=== PATIENT | male | born 1950 | race Caucasian/White ===

== ENCOUNTER → 2016-05-23 | Outpatient (CLI) | payer OTHER ==
[~2016-05-23] MED LIST: GADOBUTROL 10 ML VIAL IVP ONE
[2016-05-23 13:06] LABS: CREATININE 0.9 mg/dL (0.7-1.3); GLOMERULAR FILTRATION RATE > 60
--- NOTE | 2016-05-23 16:42 | MR ---
MRI of the Brain (Without and With Contrast) May 23, 2016 at 1322 Hours Clinical Indications: Left caudate nucleus enhancing lesion. Right frontal lobe meningioma enhancing lesion. Follow-up. Comparison: MRI brain from September 2015. Technique: T1-weighted images were acquired axially and sagittally from the foramen magnum to the ve rtex. Axial fast inversion-recovery, fast T2-weighted, and diffusion-weighted axial images were obta ined without contrast. Postcontrast axial and coronal images with the uneventful intravenous administ ration of 7.5 mL Gadavist contrast utilized for the MRI of the brain, lumbar spine, and cervical spin e. Findings: In the anterior aspect of the right frontal lobe, there is an extraaxial enhancing lesion m easuring 10 x 7 mm with decreased T2 signal, homogeneous enhancement, and dural tail, also measuring 12 mm in cephalocaudal dimension, appearing unchanged since September 2015. A left caudate head 15 x 6.5 m m enhancing lesion is also unchanged and demonstrates no evidence of T2 or FLAIR signal abnormality. In the left frontal subcortical white matter near the parasylvian region, there is a subtle 5 x 4 mm enhancing lesion on the axial series, which on the coronal series appears more linear with a draining vein subtly visualized on the previous study on the coronal series, although appears slightly more p rominent on the axial series on today's study. The ventricles, cisterns, and sulci are widened consistent with atrophy. No hydrocephalus, midline s hift, herniation, or epidural/subdural hematomas. No intracranial hemorrhage. Diffusion-weighted imag es demonstrate no acute infarct. Cerebellar tonsils are in normal position. Pituitary gland is normal in size. Normal signal flow-void in the superior sagittal sinus, basilar artery, and bilateral inter nal carotid arteries indicating patency. Several nonspecific bilateral white matter hyperintense T2/F LAIR signal abnormalities without mass effect or enhancement. Paranasal sinuses and mastoid air cells are clear. No brainstem or cerebellar infarcts or enhancing lesions. Impression: 1. Right frontal lobe benign stable enhancing 10 x 7 mm meningioma. 2. Left caudate stable enhancing 15 x 6.5 mm lesion which is nonspecific, but may represent a capilla ry telangiectasia given the lack of T2 and FLAIR signal abnormality. Follow-up MRI in 6 months is rec ommended. 3. Left frontal parasylvian subcortical subtle 5 x 4 mm enhancing lesion with a small draining vein m ay represent also a benign capillary telangiectasia or venous malformation. Follow-up recommended. 4. No new enhancing lesions. 5. No acute hemorrhage, definite acute infarct, hydrocephalus, or mass effect. 6. Mild diffuse cerebral atrophy. 7. Several nonspecific hyperintense T2/FLAIR signal abnormalities in the white matter of bilateral ce rebral hemispheres. Differential diagnosis includes mild microvascular ischemic gliosis, post-infecti ous/post-inflammatory sequela, atypical demyelinating disease, or migraine-related sequela. Recommendation: Follow-up MRI of the brain without and with contrast in 6 months.
--- NOTE | 2016-05-23 16:47 | MR ---
MRI of the Lumbar Spine (Without Contrast) May 23, 2016 at 1255 Hours Clinical Indications: D32.9-MENINGIOMA, G95.9-CERVICAL MYELOPATHY, R26.9-ABNORMAL GAIT. R/O STRUCTURA L ETIOLOGY. Technique: Sagittal and axial T1 and T2 and sagittal STIR MRI sequences of the lumbar spine without c ontrast. Findings: Lumbar vertebral bodies are of normal height without compression fractures. Conus medulla ris appears normal and ends at L1. T12-L1: Central annular tear without associated disk herniation, central canal stenosis, or neural fo raminal stenosis. L1-L2: Mild degenerative disk disease and minimal retrolisthesis without stenosis. L2-L3: Mild degenerative disk disease, mild disk bulge, and mild bilateral facet arthropathy, resulti ng in mild central canal stenosis, minimal retrolisthesis, and mild right neural foraminal stenosis. L3-L4: Moderate degenerative disk disease, mild loss of disk height, endplate diskogenic changes, cir cumferential disk bulge, and moderate bilateral facet arthropathy, resulting in moderate central myron l stenosis and mild bilateral neural foraminal stenosis. L4-L5: Mild degenerative disk disease, mild disk bulge, and moderate bilateral facet arthropathy, res ulting in mild central canal stenosis without neural foraminal stenosis. L5-S1: Severe degenerative disk disease, severe loss of disk height, circumferential disk bulge and o steophytes, degenerative retrolisthesis, and moderate bilateral facet arthropathy, resulting in moder ate central canal stenosis and moderate to severe bilateral neural foraminal stenosis. Impression: 1. L5-S1: Moderate central canal stenosis and moderate to severe bilateral neural foraminal stenosis secondary to degenerative grade 1 retrolisthesis, severe degenerative disk disease, circumferential d isk bulge and osteophytes, and bilateral moderate facet arthropathy. 2. L3-L4: Moderate central canal stenosis and mild bilateral neural foraminal stenosis secondary to m oderate degenerative disk disease, circumferential disk bulge, and bilateral facet arthropathy. 3. Please see above findings at specific disk levels.
--- NOTE | 2016-05-23 18:13 | MR ---
MRI Cervical Spine (Without Contrast) History: D32.9-MENINGIOMA, G95.9-CERVICAL MYELOPATHY, R26.9-ABNORMAL GAIT. R/O STRUCTURAL ETIOLOGY. Technique: Sagittal T1, T2, axial T2, and 3-D gradient echo MRI sequences of the cervical spine witho ut contrast. Findings: Previous anterior cervical diskectomies and fusion plate with screws at C3, C4, and C5 le vels with posterior transpedicular screws and rods also from C3-C5. No cervical compression fractures. No destructive osseous lesions. Cerebellar tonsils are in normal position. No craniocervical stenosis. Subtle increased T2/FLAIR signal intensity within the ventral a spects of the C4 and C5 cord regions which may represent residual myelomalacia, although there is no evidence of associated cord compression or atrophy at these levels. There is mild cord compression at C5-C6 without evidence of cord edema or myelomalacia. C2-C3: Moderate bilateral facet arthropathy, resulting in mild to moderate right neural foraminal katelyn nosis without central canal stenosis or left neural foraminal stenosis. C3-C4: Previous anterior cervical diskectomy without bony central canal or neural foraminal stenosis. C4-C5: Previous anterior cervical diskectomy and posterior laminectomies with hardware. No central ca nal or neural foraminal stenosis. C5-C6: Moderate degenerative disk disease with dorsal disk/osteophyte complex, bilateral uncovertebra l osteophytes, and moderate bilateral facet arthropathy, resulting in moderate central canal stenosis with effacement of the subarachnoid space, slight ventral cord compression, and moderate to severe b ilateral neural foraminal stenosis, right worse than left. C6-C7: Severe degenerative disk disease with severe disk space narrowing, dorsal disk/osteophyte comp stevie, and bilateral uncovertebral osteophytes with mild bilateral facet arthropathy, resulting in mild to moderate central canal stenosis with partial effacement of the ventral subarachnoid space, slight ventral mass effect on the cervical spinal cord, and moderate to severe bilateral neural foraminal stenosis. C7-T1: Mild degenerative disk disease and moderate bilateral facet arthropathy, resulting in mild to moderate bilateral neural foraminal stenosis without central canal stenosis. Mild old compression deformity superior endplate of T2 without acute compression fracture, retropulsi on, or stenosis at T1-T2 or T2-T3 levels. Impression: 1. Previous anterior cervical diskectomy and posterior laminectomies with anterior and posterior fusi on hardware from C3-C4 through C4-C5 without stenosis at these two levels. 2. C5-C6: Moderate central canal stenosis and moderate to severe bilateral neural foraminal stenosis secondary to moderate degenerative disk disease, dorsal disk/osteophyte complex, bilateral uncoverteb ral osteophytes, and moderate bilateral facet arthropathy, resulting in mild cord compression. 3. C6-C7: Mild to moderate central canal stenosis secondary to severe degenerative disk disease with dorsal disk/osteophyte complex, bilateral uncovertebral osteophytes, and bilateral facet arthropathy, also resulting in moderate to severe bilateral neural foraminal stenosis. 4. Please see above findings at specific disk levels.
== END ==
LOC: FIMAGING 11:45
PROVIDERS: ATTEND Psychiatry & Neurology Neurology
DX: D32.9 Benign neoplasm of meninges, unspecified (principal); R26.9 Unspecified abnormalities of gait and mobility; M51.37 Other intervertebral disc degeneration, lumbosacral region; M50.30 Other cervical disc degeneration, unspecified cervical region
CPT/HCPCS: 70553; 72141; 72148; A9585

== ENCOUNTER → 2016-06-15 | Outpatient (CLI) | payer OTHER | LOC: FIMAGING 11:11 | PROVIDERS: ATTEND Physician Assistant | DX: M54.9 Dorsalgia, unspecified (principal); Z98.1 Arthrodesis status ==

== ENCOUNTER 2016-07-19 07:15 | Inpatient (IN) | payer OTHER ==
[2016-07-19] MEDS ORDERED: BACITRACIN 50,000 UNITS/10 ML SYR IRR ONE (07:21)
[2016-07-19] MEDS ORDERED: BUPIVACAINE/EPI 0.25% 30 ML SDV ONE (07:21)
[2016-07-19] MEDS ORDERED: THROMBIN (BOVINE) 20,000 UNIT VIAL TP ONE (07:27)
[2016-07-19] MEDS ORDERED: LIDOCAINE 1% 2 ML INJ ONE (08:17)
[2016-07-19] MEDS ORDERED: ceFAZolin 3 GM in D5W 100 ML IV ONE (08:30)
[2016-07-19] MEDS ORDERED: ceFAZolin 2 GM/DEXTROSE 100 ML IV ONE (08:30)
[2016-07-19] MEDS ORDERED: LR 1,000 ML IV ONE (08:52)
[2016-07-19] MEDS ORDERED: LIDOCAINE 1% 5 ML SDV ID PRN (08:52)
[2016-07-19] MEDS ORDERED: PROPOFOL/EMULSION 500 MG/50 ML BOTTLE IV ONE ×3 (09:16→13:15)
[2016-07-19] MEDS ORDERED: fentaNYL 250 MCG/5 ML INJ ONE (09:16)
[2016-07-19] MEDS ORDERED: BISACODYL 10 MG SUPP PR PRN (09:26)
[2016-07-19] MEDS ORDERED: DIAZEPAM 5 MG TAB PO PRN (09:26)
[2016-07-19] MEDS ORDERED: NALOXONE HCL 0.4 MG/ML INJ IVP PRN (09:26)
[2016-07-19] MEDS ORDERED: ACETAMINOPHEN 325 MG TAB PO PRN (09:26)
[2016-07-19] MEDS ORDERED: ONDANSETRON DISINTEGRATING 4 MG TAB PO PRN (09:26)
[2016-07-19] MEDS ORDERED: LACTULOSE 20 GM/30 ML UDCUP PO PRN (09:26)
[2016-07-19] MEDS ORDERED: diphenhydrAMINE 25 MG CAP PO PRN (09:26)
[2016-07-19] MEDS ORDERED: HYDROmorphONE/DILAUDID 1 MG/ML SYR IVP PRN (09:26)
[2016-07-19] MEDS ORDERED: DIAZEPAM 10 MG/2 ML SYR IVP PRN (09:26)
[2016-07-19] MEDS ORDERED: HYDROmorphONE/DILAUDID 6 MG/30 ML PCA IV PRN (09:26)
[2016-07-19] MEDS ORDERED: ONDANSETRON 4 MG/2 ML VIAL IVP PRN (09:26)
[2016-07-19] MEDS ORDERED: NS W/ 20 KCl/L 1,000 ML IV SCH (09:30)
[2016-07-19] MEDS ORDERED: MIDAZOLAM 2 MG/2 ML VIAL ONE (09:35)
[2016-07-19] MEDS ORDERED: KETAMINE 100 MG/10 ML SYR IVP ONE (10:06)
[2016-07-19] MEDS ORDERED: REMIFENTANIL HCL 1 MG VIAL ONE ×2 (10:06→13:15)
[2016-07-19] MEDS ORDERED: PHENYLEPHRINE HCL 100 MCG/ML SYR ONE (13:14)
[2016-07-19] MEDS ORDERED: fentaNYL 100 MCG/2 ML INJ ONE ×2 (14:27→17:33)
[2016-07-19] MEDS ORDERED: HYDROmorphONE/DILAUDID 2 MG/ML INJ ONE (15:32)
[2016-07-19] MEDS ORDERED: LABETALOL HCL 50 MG/10 ML SYR ONE (16:53)
--- NOTE | 2016-07-19 17:10 | SOAPPROG ---
SOAP Progress Note Assessment/Plan: Post Op Visit: S: Awake and alert. NAD. Pt with expected neck pain O: AFVSS/PERRLA/EOMI no droop CN 2-12 grossly intact +lt touch 5/5 BUE/BLE = CDI Neck is soft and supple-no induration A/P: 66 yo male that is s/p ACDF C5-C7 with PSF C3-C7 -orders in place -call with any questions or concerns -pt seen by Dr Schilling as well 07/19/16 17:04 ICD10 Worksheet Patient Problems: Problems Problem Status Onset Arthrodesis status Acute Cervical stenosis of spine Acute Arthrodesis status Acute Fracture of rib of left side Acute Lumbar radiculitis Acute Lumbar stenosis Acute Pneumothorax Acute Primary osteoarthritis of left knee Acute Primary osteoarthritis of right knee Acute - ICD10 Problem Qualifiers (1) Cervical stenosis of spine (2) Arthrodesis status
[2016-07-19] MEDS ORDERED: DIAZEPAM 10 MG/2 ML SYR ONE (17:47)
--- NOTE | 2016-07-19 19:41 | GOP ---
[f rep st] OPERATIVE REPORT DATE OF OPERATION: 07/19/2016 SURGEON: Jack Schilling MD [employer] TESTER: Thony Aguilar PA-C PREOPERATIVE DIAGNOSIS: 1. Cervical stenosis, gait difficulty, bowel and bladder difficulties, cervicalgia. 2. Prior cervical fusion with solid arthrodesis, C3-4, C4-5. POSTOPERATIVE DIAGNOSIS: 1. Cervical stenosis, gait difficulty, bowel and bladder difficulties, cervicalgia. 2. Prior cervical fusion with solid arthrodesis, C3-4, C4-5. PROCEDURE PERFORMED: 1. Anterior cervical diskectomy, fusion and decompression at the same level at C5-6, C6-7 (24484, 2 2322), placement of biomechanical intervertebral device without anchors at C5-6, C6-7 (26879), anter ior cervical instrumentation 3-level, C5-C6, C7 (36576), same incision bone graft harvest, microscop e. 2. Posterior cervical exploration of spinal fusion (non-available code). We did remove posterior s egmental hardware at C3, C4, C5, with posterolateral arthrodesis C3-4, C4-5, C5-6, C6-7, with placem ent of new segmental instrumentation from C3-C7 (14734), same incision bone graft harvest, single-le lisa cervical decompression at C6 with decompression all the way to the C5-6 level and down to the C6 -7 level without facetectomy (46127), spinal stereotaxy. FINDINGS: ESTIMATED BLOOD LOSS: Total blood loss for the entire procedure was 100 cc. INDICATIONS: The patient is a 66-year-old who underwent a successful fusion at C3-4, C4-5 in years past for severe spinal stenosis. He did well with resolution of many of his symptoms, but he is dev eloping increasing difficulty with gait, as well as some bowel and bladder control issues. New MRI demonstrated worsening cervical stenosis at C5-6, C6-7. He also did increasing cervicalgia. I was somewhat indifferent about the degree of cervical stenosis, but felt though there was a chance that this could help his symptoms. There was is also a chance it could help his neck pain, but he knew t here was a chance also that it may not improve. We imaged the rest of his neuraxis and there was re ally no explanation for his increasing difficulty outside of this mechanical problem in the neck, un less there was a neurodegenerative condition that had not yet being diagnosed, and it was felt that we should make an attempt at cervical decompression. The risk of esophageal injury, carotid injury, recurrent laryngeal nerve injury, pseudoarthrosis, adjacent segment disease, as well as the possibl e extension of the fusion to the adjacent levels, was discussed. He knew there was a risk of major vascular injuries, hoarseness, as well as dysphagia, and he did want to proceed. He had a prior cer vical hardware at C3-4, C4-5, and we would attempt to remove some of this as necessary, if it was ne cessary to place our new plate. We had already planned prospectively an anterior-posterior approach to the spine and he understood this. DESCRIPTION OF PROCEDURE: The patient was taken to the operating room, placed in supine position. General anesthesia was begun. A midline shoulder roll was placed. His arms were tucked at his side . Care was taken to pad all points of contact. His head was placed on a horseshoe overhead irrigator. Th e neck was sterilely prepped and draped in usual fashion. A localizing x-ray was taken. We made a transverse incision on the left side of his neck. The prior surgery had been done for the right elyssa e. The left-sided incision was about an inch lower than on the right-hand side. The subcutaneous t issue was dissected using Bovie cautery down through the platysma. We then used a combination of sh yari and blunt dissection medial to the sternocleidomastoid and lateral to the strap muscles, down to the prevertebral space. A localizing x-ray was taken. The esophagus was quite stuck to his prior anterior cervical plate. We freed up on the bottom part of the plate and completely visualized the entire bottom part of the plate. As we continued our dissection rostrally, I was not very comfortab le with mobilizing the esophagus in this manner. We elected therefore, really, to leave the plate i n place. It was firmly seated on the bone at C5 and there was enough room to at least allow screws to purchase with the inferior plate using the Divergence System that we had in place. Another plate would not truly interfere. We would not be able to completely counter-seat the new plate because o f the old plate, but I still thought we would achieve our purposes. I thought this was safer in thi s context to not manipulate the esophagus more than necessary. We did dissect the longus colli musc les off the spine at C5-6, C6-7, placed a distraction pin at C5-6, and introduced the operating micr oscope, and under the scope removed the C5-6 disk space. There were huge ventral osteophytes presen t. These were drilled off and harvested. We removed the disk completely and the cartilaginous endp lates. We opened the posterior longitudinal ligament, decompressed the thecal sac and the neural fo ramina bilaterally. We then chose a 7 mm PEEK intervertebral device coated with titanium and placed bony autograft into the device and inserted it at C5-6. A nice fit was obtained. We then removed our distraction pins. We went to C6-7 where again we removed all the ventral osteophytes completely and then removed the disk and the cartilaginous endplates completely. We drilled and harvested sub chondral bone for autologous grafting purposes just as we had done at C5-6, and we opened the it teacher ior longitudinal ligament, decompressed the thecal sac and the neural foramina bilaterally. Here, t oo, we chose a 7 mm PEEK intervertebral devices. It was lordotic. We packed it with autograft and inserted it at C6-7. A nice fit was obtained. We removed all our distraction pins, prepared the ve ntral surface of the vertebral body for placement of the plate. We chose a 37 mm ZEVO plate and it fit nicely onto C5 and all way down to C7. The prior plate was imbedded in the C5 vertebral body, a nd even though we had removed the ventral osteophytes, We had a nice place for this new plate to pur [place], although the rostral lip would sit on top of the prior plate. We thought, particularly in vi ew of our posterior approach, that this was reasonable, and we were able to place a plate in very go od position and achieved excellent bony purchase with our screws. We then shot x-rays and confirmed the position of all the hardware and locked all the screws according to company specification. Six total screws were used. We used three 15 mm screws and three 17 mm screws. Based on the intermedi ate x-ray, we increase the length of the screws, and they were all in excellent position. We then a chieved meticulous hemostasis. We closed the incision in multiple layers using Vicryl sutures, and this concluded procedure number 1. We then flipped the patient over after placement in the Menezes head tongs, positioned him on the J ackson table. Care was taken to pad all points of contact. His head was kept in the neutral positi on with the occiput was slightly flexed. The back of his neck was sterilely prepped and draped in u sual fashion. We opened the prior incision, extended it inferiorly by about 1 inch. The subcutaneo us tissue was dissected using a plasma blade down through the fascia and a subperiosteal dissection was made down to the lamina of C7 and the lamina of C6. Prior hardware at C5 was then uncovered lat erally. We dissected up along the hardware all the way to C3. We removed all the set screws and re moved the shelley at C3, C4, C5 bilaterally. We then dissected adjacent to the screws. They were all f irmly seated within bone. We decorticated the posterolateral bone bilaterally at C3, C4, C5 for a p osterolateral arthrodesis, as well as the C6 and then C7. There was solid bony union at C3-4, C4-C5 . There was no bony union at C5-6, C-C7. We elected to leave the screws in place. They were firml y encased in bone. I thought this provided some structural integrity and we would leave the screws in their positions. We attached the Stealth reference frame to C7, performed an O-arm spin, and usi frameless Stealth stereotaxy, placed pedicle screws bilaterally in the C7 pedicles, bilaterally i n the C6 lateral masses. An O-arm spin was obtained. The screws were all in excellent position. W e then took 60 mm rods and cut off about 5 mm from these rods and increased the bend slightly in bot h of them. We were able to capture all the screws at C3, C4, C5, C6 and C7 despite the lateral mass -to-pedicle screw transition zone at C6. We decorticated the C6-7 facet joint, as well as the C5-6 facet joint, to create a posterolateral arthrodesis. We then placed the rods down and firmly fixed them in place. We final tightened all the cap screws according to company specification. We then d ecorticated and harvested bone posterolaterally as well as from the C6 lamina. We drilled the karl a away and harvested in a bone transport. We opened the ligamentum flavum and performed a C6 starr ctomy, decompressed the spinal canal at C6-7, as well as the C5-6. No facetectomy was performed. W e were happy with the quality of our decompression. We used this bone to create bony autograft and it was laid posterolaterally bilaterally from C5 to C6, to C6 to C7, as well as an extra-small 2 mg BMP sponge was placed posterolaterally 1 mg on each side. We then placed a subfascial drain and hanny sed the incision in multiple layers using Vicryl sutures. Running PDS was placed in the skin itself . There were no complications. COMPLICATIONS: None. /[id number]/MODL
[2016-07-19] MEDS: HYDROCODONE/APAP 10/325 TAB PO PRN (19:59)
[2016-07-19] MEDS: morphINE SR 15 MG TAB PO SCH (19:59)
[2016-07-19] MEDS: FAMOTIDINE 20 MG/NACL 50 ML IV SCH (20:01)
[2016-07-19] MEDS: METHOCARBAMOL 750 MG TAB PO PRN (21:41)
[2016-07-20] MEDS: HYDROCODONE/APAP 10/325 TAB PO PRN ×4 (03:44→22:55)
[2016-07-20 06:11] LABS: % IMMATURE GRANULYOCYTES 0.7 % (0.0-1.1); ABSOLUTE IMMATURE GRANULOCYTES 0.08 10^3/uL (0.00-0.10); ADD DIFF? NO; ADD MORPH? NO; ADD SCAN? NO; ATYPICAL LYMPHOCYTE FLAG 0 (0-99); FRAGMENT RBC FLAG 0 (0-99); HEMATOCRIT 40.2 % (40.0-51.0); HEMOGLOBIN 13.6 g/dL (13.7-17.5); LEFT SHIFT FLG 0 (0-99); LIPEMIA HEMOLYSIS FLAG 90 (0-99); MEAN CELL HEMOGLOBIN 34.2 pg (27.9-34.1); MEAN CELL HEMOGLOBIN CONCENTR. 33.8 g/dL (32.4-36.7); MEAN PLATELET VOLUME 12.2 fL (8.7-11.7); PLATELET CLUMPS FLAG 0 (0-99); PLATELET COUNT 80 10^3/uL (150-400); RED BLOOD CELL COUNT 3.98 10^6/uL (4.40-6.38); RED CELL DISTRIBUTION WIDTH 13.5 % (11.5-15.2)
[2016-07-20 06:19] LABS: ANION GAP 6 mEq/L (8-16); CALCIUM 8.2 mg/dL (8.5-10.4); CARBON DIOXIDE 22 mEq/l (22-31); CHLORIDE 107 mEq/L (97-110); CREATININE 0.8 mg/dL (0.7-1.3); GLOMERULAR FILTRATION RATE > 60; GLUCOSE 118 mg/dL (70-100); POTASSIUM 4.2 mEq/L (3.5-5.2); SODIUM 135 mEq/L (134-144)
[2016-07-20] MEDS: METHOCARBAMOL 750 MG TAB PO PRN (07:04)
--- NOTE | 2016-07-20 07:30 | SOAPPROG ---
SOAP Progress Note Assessment/Plan: Assessment: POD #1 s/p 5/6,6/7 ACDF and posterior C3-7 fusion doing well, pain controlled no change in bilateral hand paresthesias Plan: Continue Collar. COntinue DOM drain PT/OT/ST today Xrays today soft diet 07/20/16 07:27 Subjective: awake, alert, pain well controlled he reports no change in his bilateral hand paresthesias Objective: Vital Signs Temp Pulse Resp BP Pulse Ox 36.6 C 90 16 125/80 H 97 07/20/16 03:49 07/20/16 03:49 07/20/16 03:49 07/20/16 03:49 07/20/16 03:49 Microbiology 07/19/16 11:24 Gram Stain - Final Other - Eswab Laboratory Results 07/20/16 04:29 07/20/16 04:45 07/19/16 07/20/16 07/21/16 05:59 05:59 05:59 Intake Total 5975 Output Total 2815 300 Balance 3160 -300 Dressing X 2: CDI Neuro: Bilateral hand paresthesias strength =/symmetric DOM Drain Posteriorly: 185ml ICD10 Worksheet Patient Problems: Problems Problem Status Onset Arthrodesis status Acute Cervical stenosis of spine Acute Arthrodesis status Acute Fracture of rib of left side Acute Lumbar radiculitis Acute Lumbar stenosis Acute Pneumothorax Acute Primary osteoarthritis of left knee Acute Primary osteoarthritis of right knee Acute
[2016-07-20] MEDS: morphINE SR 15 MG TAB PO SCH ×2 (09:52→20:31)
[2016-07-20] MEDS: PANTOPRAZOLE SODIUM 40 MG TAB PO SCH (09:53)
[2016-07-20] MEDS: POLYETHYLENE GLYCOL 3350 17 GM PKT PO SCH (09:53)
[2016-07-20] MEDS: DOCUSATE SODIUM 100 MG CAP PO SCH (09:53)
[2016-07-20] MEDS: buPROPion XL 150 MG TAB PO SCH (09:53)
[2016-07-20] MEDS: ATORVASTATIN CALCIUM 10 MG TAB PO SCH (09:53)
[2016-07-20] MEDS: GABAPENTIN 300 MG CAP PO SCH (09:54)
[2016-07-20] MEDS: FAMOTIDINE 20 MG/NACL 50 ML IV SCH (09:56)
[2016-07-20] MEDS: MAGNESIUM HYDROXIDE 30 ML UDCUP PO PRN (15:47)
[2016-07-20 20:18] VITALS: RESP 16
[2016-07-20] MEDS: FAMOTIDINE 20 MG TAB PO SCH (20:31)
[2016-07-21] MEDS: METHOCARBAMOL 750 MG TAB PO PRN ×3 (05:38→13:38)
--- NOTE | 2016-07-21 07:24 | NEUSURGPN ---
Date of Surgery: 07/19/16 Post Op Day: 2 Assessment/Plan: Assessment: 66 yo male that is POD #2 s/p 5/6 and 6/7 ACDF and posterior C3-7 fusion Plan: -s/p A/P fusion: pt doing well and is ambulating well. Minimal pain -pt tolerating collar well -post op xrays look good -doing well, pain well controlled -minimal improvement in the bilateral hand paresthesia -DOM drain out -dressing changed -PT/OT/ST today -soft diet -plan for dc later today -pt seen by Dr Schilling as well -call with any questions or concerns Subjective: Awake and alert. NAD. No new events or issues. Eating/drinking and voiding. No f/c/n/v/d. Objective: AFVSS/PERRLA/EOMI no droop CN 2-12 grossly intact +lt touch 5/5 BUE/BLE = CDI Neck is soft and supple-no induration Neuro Check Frequency: per routine Urinary Catheter in Place: No Catheter Insertion Date: 07/19/16 - Physician Discussed Patient with Dr.: Shakir Patient Seen by : Shakir Neurosurgery Physical Exam - Vitals, I&O, Labs I and O 07/20/16 07/21/16 07/22/16 05:59 05:59 05:59 Intake Total 5975 2500 Output Total 2815 420 Balance 3160 2080 Weight 122 kg Intake: Oral (ml) 2300 2500 IV Intake (ml) 2750 IV Infused (ml) 925 Famotidine 20 mg/NaCl 50 50 ml @ 200 mls/hr IV Q12HRS [facility] Rx#:[id number] NS W/ 20 KCl/L 1,000 ml @ 825 75 mls/hr IV CONT [facility] Rx #:[id number] ceFAZolin 1 GM/DEXTROSE 50 50 ml @ 200 mls/hr IV Q8HRS [facility] Rx#:[id number] Output: Urine (ml) 2350 300 Catheter 2350 300 Estimated Blood Loss (ml) 280 Wound Drainage (ml) 185 120 Posterior Neck 185 120 Other: Intake Quantity Yes Yes Sufficient Number of Voids Catheter 1 Bladder Scan Volume (ml) Catheter 40 Microbiology 07/19/16 11:24 Gram Stain - Final Other - Eswab Vital Signs Temp Pulse Resp BP Pulse Ox 36.9 C 84 16 148/91 H 94 07/20/16 23:56 07/20/16 23:56 07/20/16 23:56 07/20/16 23:56 07/20/16 23:56 Laboratory Results 07/20/16 04:29 07/20/16 04:45 ICD10 Worksheet Patient Problems: Problems Problem Status Onset Arthrodesis status Acute Cervical stenosis of spine Acute Arthrodesis status Acute Fracture of rib of left side Acute Lumbar radiculitis Acute Lumbar stenosis Acute Pneumothorax Acute Primary osteoarthritis of left knee Acute Primary osteoarthritis of right knee Acute - ICD10 Problem Qualifiers (1) Cervical stenosis of spine (2) Arthrodesis status
[2016-07-21 07:34] VITALS: BP 162/109; PULSE 76; TEMP 97.5; O2SAT 96
[2016-07-21] MEDS: buPROPion XL 150 MG TAB PO SCH (07:42)
[2016-07-21] MEDS: POLYETHYLENE GLYCOL 3350 17 GM PKT PO SCH (07:42)
[2016-07-21] MEDS: morphINE SR 15 MG TAB PO SCH (07:43)
[2016-07-21] MEDS: GABAPENTIN 300 MG CAP PO SCH (07:43)
[2016-07-21] MEDS: PANTOPRAZOLE SODIUM 40 MG TAB PO SCH (07:43)
[2016-07-21] MEDS: ATORVASTATIN CALCIUM 10 MG TAB PO SCH ×2 (07:43→07:55)
[2016-07-21] MEDS: DOCUSATE SODIUM 100 MG CAP PO SCH (07:43)
[2016-07-21] MEDS: FAMOTIDINE 20 MG TAB PO SCH (07:43)
[2016-07-21] MEDS: HYDROCODONE/APAP 10/325 TAB PO PRN ×2 (07:46→13:38)
[2016-07-21] MEDS: MAGNESIUM HYDROXIDE 30 ML UDCUP PO PRN (12:37)
[2016-07-22] MEDS ORDERED: ENOXAPARIN 40 MG/0.4 ML SYR SC SCH (09:00)
== END 2016-07-21 14:16 | disposition home or self-care (01) | DRG 455 ==
LOC: F3N 07:33
PROVIDERS: ADMIT Neurological Surgery; ATTEND Neurological Surgery
PROC: 0RG20AJ Fusion of 2 or more Cervical Vertebral Joints with Interbody Fusion Device, Posterior Approach, Anterior Column, Open Approach (ICD-10-PCS; principal; 2016-07-19 09:30)
PROC: 0RB30ZZ Excision of Cervical Vertebral Disc, Open Approach (ICD-10-PCS; principal; 2016-07-19 09:30)
PROC: 01N Peripheral Nervous System, Release (ICD-10-PCS; principal; 2016-07-19 09:30)
PROC: 0RP10AZ Removal of Interbody Fusion Device from Cervical Vertebral Joint, Open Approach (ICD-10-PCS; principal; 2016-07-19 09:30)
PROC: 3E0U0GB Introduction of Recombinant Bone Morphogenetic Protein into Joints, Open Approach (ICD-10-PCS; principal; 2016-07-19 09:30)
PROC: 0RG20A0 Fusion of 2 or more Cervical Vertebral Joints with Interbody Fusion Device, Anterior Approach, Anterior Column, Open Approach (ICD-10-PCS; principal; 2016-07-19 09:30)
DX: M48.02 Spinal stenosis, cervical region (principal); M54.12 Radiculopathy, cervical region; Z98.1 Arthrodesis status
CPT/HCPCS: 92610-GN; 97116-GP; 97161-GP; 97165-GO; 97530-GP; C1713; G8978-GP-CI; G8979-GP-CI; G8980-GP-CI; G8987-GO-CI; G8988-GO-CI; G8989-GO-CI; G8996-GN-CI; G8997-GN-CH; J0690; J1170; J2250; J2370; J2704; J3010

== ENCOUNTER 2016-08-11 10:49 | Emergency (ER) | payer OTHER ==
[2016-08-11 10:55] VITALS: TEMP 97.3
--- NOTE | 2016-08-11 11:03 | CPEKG ---
Heart Rate: 113 RR Interval: 531 P-R Interval: 168 QRSD Interval: 90 QT Interval: 324 QTC Interval: 445 P [place]: 70 QRS [place]: -10 T Wave [place]: 36 EKG Severity - OTHERWISE NORMAL ECG - EKG Impression: SINUS TACHYCARDIA Electronically Signed By: Shahram Melvin 11-Aug-2016 15:09:50
[2016-08-11] MEDS ORDERED: ONDANSETRON 4 MG/2 ML VIAL IVP ONE (11:06)
[2016-08-11] MEDS ORDERED: LORazepam 2 MG/ML INJ IVP ONE (11:06)
[2016-08-11 11:19] LABS: ABSOLUTE IMMATURE GRANULOCYTES 0.06 10^3/uL (0.00-0.10); ADD DIFF? NO; ADD MORPH? NO; ADD SCAN? NO; ATYPICAL LYMPHOCYTE FLAG 20 (0-99); FRAGMENT RBC FLAG 0 (0-99); HEMATOCRIT 48.2 % (40.0-51.0); HEMOGLOBIN 17.2 g/dL (13.7-17.5); LEFT SHIFT FLG 10 (0-99); LIPEMIA HEMOLYSIS FLAG 90 (0-99); MEAN CELL HEMOGLOBIN 34.1 pg (27.9-34.1); MEAN CELL HEMOGLOBIN CONCENTR. 35.7 g/dL (32.4-36.7); MEAN CELL VOLUME 95.4 fL (81.5-99.8); MEAN PLATELET VOLUME 11.3 fL (8.7-11.7); PLATELET CLUMPS FLAG 0 (0-99); PLATELET COUNT 218 10^3/uL (150-400); RED BLOOD CELL COUNT 5.05 10^6/uL (4.40-6.38); RED CELL DISTRIBUTION WIDTH 13.2 % (11.5-15.2)
[2016-08-11 11:32] LABS: ANION GAP 14 mEq/L (8-16); CALCIUM 9.9 mg/dL (8.5-10.4); CARBON DIOXIDE 20 mEq/l (22-31); CHLORIDE 109 mEq/L (97-110); GLOMERULAR FILTRATION RATE > 60; GLUCOSE 95 mg/dL (70-100); POTASSIUM 4.3 mEq/L (3.5-5.2); SODIUM 143 mEq/L (134-144)
[2016-08-11] MEDS ORDERED: IOPAMIDOL (ISOVUE 370) 100 ML BTL IV ONE (11:41)
[2016-08-11 11:44] LABS: TROPONIN I < 0.012 ng/mL (0-0.034)
[2016-08-11 12:20] VITALS: RESP 18
--- NOTE | 2016-08-11 13:01 | EDPHY ---
H & P Stated Complaint: neck surg 07/19 now with anxiety/sob HPI/ROS: Chief complaint: Get patient is choking, having trouble breathing and chest pain History of present illness: This is a 66-year-old male who presents to the emergency department stating he feels like he is choking. He further reports he is having trouble breathing and has developed chest pain. Patient reports he has had symptoms for the last 4-5 weeks. They started after he underwent experimental injections for neck pain and subsequent neck surgery. States symptoms are intermittent in nature. He has had associated nausea without vomiting. He denies other associated signs or symptoms including no fevers, no new neurologic symptoms such as paresthesias, weakness or paralysis or bowel or bladder dysfunction. Review of systems: A 10 point review of systems was obtained and other than described above was negative - Personal History Current Tetanus/Diphtheria Vaccine: Yes Tetanus Vaccine Date: 2007 - Medical/Surgical History Hx Asthma: No Hx Chronic Respiratory Disease: No Hx Diabetes: No Hx Cardiac Disease: No Hx Renal Disease: No Hx Cirrhosis: No Hx Alcoholism: No Hx HIV/AIDS: No Hx Splenectomy or Spleen Trauma: No Other PMH: [facility], tinnitus, HTN, depression, PTSD & night terrors, 2 right shoulder rotator cuff repairs, mild AUTUMN (no CPAP), Rt/LT TKA - Social History Smoking Status: Never smoked - Physical Exam Exam: General Appearance: Alert, nontoxic. Eyes: Pupils equal and round no pallor or injection. ENT, Mouth: No edema. No hoarseness, no drooling, no trismus, no stridor. Mucous membranes moist. Respiratory: There are no retractions, lungs are clear to auscultation. Cardiovascular: Regular rate and rhythm. Gastrointestinal: Abdomen is soft and nontender, no masses, bowel sounds normal. Neurological: Alert and oriented x4. Cranial nerves 2-12 appear grossly intact. Strength and sensation intact and symmetrical. Patient ambulating well. Skin: Warm and dry, no rashes. Musculoskeletal: Neck is supple nontender. Extremities are symmetrical, full range of motion. Psychiatric: Patient is oriented X 3, there is no agitation. Constitutional: Initial Vital Signs Temperature (C) 36.3 C 08/11/16 10:53 Heart Rate 110 H 08/11/16 10:53 Respiratory Rate 25 H 08/11/16 10:53 Blood Pressure 151/121 H 08/11/16 10:53 O2 Sat (%) 98 08/11/16 10:53 O2 Delivery Mode Room Air Allergies/Adverse Reactions: No Known Allergies Allergy (Verified 08/11/16 10:51) Home Medications: Medication Instructions Recorded buPROPion XL [Wellbutrin 150mg XL] 450 mg PO DAILY 04/16/14 Gabapentin [Neurontin 300 MG (*)] 600 mg PO DAILY 05/08/15 Simvastatin [Zocor] 20 mg PO DAILY 08/26/15 Docusate Sodium [Colace 100 MG (*)] 100 mg PO DAILY 07/08/16 Acetaminophen [Tylenol 325mg (*)] 325 - 650 mg PO Q4HRS PRN #0 tab 07/21/16 Diazepam [Valium 5 MG (*)] 5 mg PO QID PRN #40 tab 07/21/16 HYDROcodone/APAP 10/325 [[place] 1 - 2 tab PO Q6HRS PRN #90 tab 07/21/16 10/325 (*)] Medical Decision Making - Diagnostics Imaging Results: Imaging Impressions Chest/Thorax CTA 08/11/16 11:40 Impression: 1. Normal CT scan of the chest 2. No evidence for pulmonary embolic disease. Findings and recommendations discussed with RAJAN Lassiter at 12:30 hour, 2016. Final report concurs with initial preliminary interpretation. Neck CTA 08/11/16 11:45 Impression: Normal. Findings and recommendations discussed with RAJAN Lassiter at 12:30 hour, 2016. Final report concurs with initial preliminary interpretation. Note: All stenoses are calculated using NASCET Criteria. Imaging: Discussed imaging studies w/ manager call center Radiologist ED Course/Re-evaluation: Patient is discussed with my secondary supervising physician Dr. Shahram Melvin. Patient presents to the emergency department feeling a sensation of choking, shortness breath and chest pain. He has had this sensation since undergoing neck injections and neck surgery over a month ago. On presentation he is nontoxic. Afebrile and vital signs are stable. No evidence of airway compromise. Blood studies unremarkable except for an elevated D-dimer. CT angiogram of the neck and chest does not show PE or other complications. I have discussed the case with on-call physician assistant director of admissions for patient's neurosurgeon, Mr. Thony Aguilar. He does not believe further evaluation is warranted at this time. Patient will be discharged home. He is asked to follow up with Dr. Schilling's office. Home care is discussed. Return precautions are given. Patient voiced understanding and agreement with plan. Differential Diagnosis: Included but not limited to postoperative complications such as infection, pulmonary embolism, pulmonary infections such as pneumonia, pneumothorax, anxiety he - Data Points Laboratory Results: Laboratory Results 08/11/16 11:09 08/11/16 11:09 08/11/16 08/11/16 08/11/16 11:09 11:09 11:09 WBC 6.04 10^3/uL 10^3/uL (3.80-9.50) RBC 5.05 10^6/uL 10^6/uL (4.40-6.38) Hgb 17.2 g/dL g/dL (13.7-17.5) Hct 48.2 % % (40.0-51.0) MCV 95.4 fL fL (81.5-99.8) MCH 34.1 pg pg (27.9-34.1) MCHC 35.7 g/dL g/dL (32.4-36.7) RDW 13.2 % % (11.5-15.2) Plt Count 218 10^3/uL 10^3/uL (150-400) MPV 11.3 fL fL (8.7-11.7) Neut % (Auto) 63.9 % % (39.3-74.2) Lymph % (Auto) 22.5 % % (15.0-45.0) Tucker % (Auto) 9.4 % % (4.5-13.0) Eos % (Auto) 2.5 % % (0.6-7.6) Baso % (Auto) 0.7 % % (0.3-1.7) Nucleat RBC Rel Count 0.0 % % (0.0-0.2) Absolute Neuts (auto) 3.86 10^3/uL 10^3/uL (1.70-6.50) Absolute Lymphs (auto) 1.36 10^3/uL 10^3/uL (1.00-3.00) Absolute Monos (auto) 0.57 10^3/uL 10^3/uL (0.30-0.80) Absolute Eos (auto) 0.15 10^3/uL 10^3/uL (0.03-0.40) Absolute Basos (auto) 0.04 10^3/uL 10^3/uL (0.02-0.10) Absolute Nucleated RBC 0.00 10^3/uL 10^3/uL (0-0.01) Immature Gran % 1.0 % % (0.0-1.1) Immature Gran # 0.06 10^3/uL 10^3/uL (0.00-0.10) D-Dimer 3.45 ug/mLFEU H ug/mLFEU (0.00-0.50) Sodium 143 mEq/L mEq/L (134-144) Potassium 4.3 mEq/L mEq/L (3.5-5.2) Chloride 109 mEq/L mEq/L (97-110) Carbon Dioxide 20 mEq/l L mEq/l (22-31) Anion Gap 14 mEq/L mEq/L (8-16) BUN 20 mg/dL mg/dL (7-23) Creatinine 1.0 mg/dL mg/dL (0.7-1.3) Estimated GFR > 60 Glucose 95 mg/dL mg/dL (70-100) Calcium 9.9 mg/dL mg/dL (8.5-10.4) Troponin I < 0.012 ng/mL ng/mL (0-0.034) Medications Given: Discontinued Medications Lorazepam (Ativan Injection) 0.5 mg IVP EDNOW ONE Stop: 08/11/16 11:07 Last Admin: 08/11/16 11:21 Dose: 0.5 mg Ondansetron HCl (Zofran) 4 mg IVP EDNOW ONE Stop: 08/11/16 11:07 Last Admin: 08/11/16 11:21 Dose: 4 mg Departure - Departure Disposition: To OP Cath/Surgery Clinical Impression: Dyspnea Qualifiers: Dyspnea type: unspecified Qualified Code(s): R06.00 - Dyspnea, unspecified Condition: Good Instructions: Dyspnea (ED) Additional Instructions: Follow-up with your doctors for continued evaluation and care If symptoms worsen or new symptoms develop return to the emergency room for recheck Referrals: NONE *PRIMARY CARE P,. [Primary Care Provider] - As per Instructions Shahram Shea DO [Medical Doctor] - As per Instructions Siva Schilling MD [Medical Doctor] - As per Instructions
[2016-08-11 13:19] VITALS: BP 117/87; PULSE 99; O2SAT 93
== END 2016-08-11 13:19 | disposition still patient (30) ==
DX: R06.00 Dyspnea, unspecified (principal); I10 Essential (primary) hypertension
CPT/HCPCS: 70498; 71275; 93005; 96374; 96375; 99285; J2060; J2405; Q9967

== ENCOUNTER → 2016-08-25 | Outpatient (CLI) | payer OTHER | LOC: FIMAGING 08:22 | PROVIDERS: ATTEND Nurse Practitioner | DX: Z98.1 Arthrodesis status (principal) ==

== ENCOUNTER → 2016-10-20 | Outpatient (CLI) | payer OTHER | LOC: FIMAGING 08:38 | PROVIDERS: ATTEND Nurse Practitioner | DX: D32.9 Benign neoplasm of meninges, unspecified (principal); G93.9 Disorder of brain, unspecified | CPT/HCPCS: 70553; A9585 ==

== ENCOUNTER → 2016-10-20 | Outpatient (CLI) | payer OTHER | LOC: FIMAGING 10:26 | PROVIDERS: ATTEND Nurse Practitioner | DX: Z98.1 Arthrodesis status (principal) ==

== ENCOUNTER 2016-11-17 06:17 | Inpatient (IN) | payer OTHER ==
[2016-11-17] MEDS ORDERED: LIDOCAINE 1% 2 ML INJ ID PRN (06:29)
[2016-11-17] MEDS ORDERED: LR 1,000 ML IV ONE (06:29)
[2016-11-17] MEDS ORDERED: ceFAZolin 2 GM/DEXTROSE 100 ML IV ONE (07:00)
--- NOTE | 2016-11-17 07:28 | PDHPUP ---
History & Physical Update H&P update statement: This history and physical update is based on an assessment of the patient which was completed after admission or registration (within 24 hours), but prior to the surgery/procedure. H&P update: H&P reviewed & patient examined, no change in patient's condition since H&P completed
[2016-11-17] MEDS ORDERED: CEFAZOLIN 2 GM/DEXTROSE/100 ML BAG IV ONE (07:39)
[2016-11-17] MEDS ORDERED: OXYMETAZOLINE 30 ML NASAL SPRAY ONE (07:40)
[2016-11-17] MEDS ORDERED: THROMBIN (BOVINE) 5,000 UNIT VIAL TP ONE (07:40)
[2016-11-17] MEDS ORDERED: CHLORHEXIDINE GLUC HIBICLENS 118 ML BTL TP ONE (07:40)
[2016-11-17] MEDS ORDERED: BUPIVACAINE/EPI 0.25% 30 ML SDV ONE (07:41)
[2016-11-17] MEDS ORDERED: MIDAZOLAM 2 MG/2 ML VIAL ONE (08:05)
[2016-11-17] MEDS ORDERED: fentaNYL 100 MCG/2 ML INJ ONE ×2 (08:06→13:00)
[2016-11-17] MEDS ORDERED: REMIFENTANIL HCL 1 MG VIAL ONE ×3 (08:06→08:07)
[2016-11-17] MEDS ORDERED: PROPOFOL 200 MG/20 ML VIAL ONE ×2 (08:07→12:01)
[2016-11-17] MEDS ORDERED: PROPOFOL/EMULSION 500 MG/50 ML BOTTLE IV ONE ×2 (08:07→10:43)
[2016-11-17] MEDS ORDERED: MIDAZOLAM 2 MG/2 ML VIAL IVP ONE (08:11)
--- NOTE | 2016-11-17 08:11 | PDANEPAE ---
ANE History of Present Illness Patient presents for back surgery ANE Past Medical History - Cardiovascular History Hx Hypertension: No Hx Arrhythmias: No Hx Chest Pain: No Hx Coronary Artery / Peripheral Vascular Disease: No Hx CHF / Valvular Disease: No Hx Palpitations: No Cardiovascular History Comment: IMPLANTED LOOP RECORDER FOR RECURRENT SYNCOPE EPISODES. NO CP - Pulmonary History Hx COPD: No Hx Asthma/Reactive Airway Disease: No Hx Recent Upper Respiratory Infection: No Hx Oxygen in Use at Home: No Hx Sleep Apnea: Yes Sleep Apnea Screening Result - Last Documented: Positive Pulmonary History Comment: OCC CIGAR. AUTUMN POS- CANT M[place]OZA CPAP - Neurologic History Hx Cerebrovascular Accident: No Hx Seizures: No Hx Dementia: No Neurologic History Comment: OCCULAR MIGRAINES LAST EPISODE 07/2016 - Endocrine History Hx Diabetes: No - Renal History Hx Renal Disorders: Yes Renal History Comment: TURP X 4. HX PROSTATITIS - Liver History Hx Hepatic Disorders: No - Neurological & Psychiatric Hx Hx Neurological and Psychiatric Disorders: Yes Neurological / Psychiatric History Comment: DEPRESSION, PTSD. OCULAR MIGRAINES - Cancer History Hx Cancer: No - Congenital Disorder History Hx Congenital Disorders: No Congenital History Comment: DYSLEXIC - GI History Hx Gastrointestinal Disorders: Yes Gastrointestinal History Comment: REFLUX. CONSTIPATION - Other Health History Other Health History: OA - Chronic Pain History Chronic Pain: Yes (R KNEE, R SHOULDER, L FOOT) - Surgical History Prior Surgeries: CERVICAL C5,6,7. R FOOT SURG. R SHOULDER REPLACED. CERVICAL C3,4,5. LOOP RECORDER IMPLANTED 10/2015. COLONOSCOPY 03/2015. SAMANTHA TKA. L FOOT. R RTC REP X2, X1 W CTA HEAD 10-30-10. L SHOULDER. EYE SURG. TURP X 4 ANE Review of Systems - Exercise capacity Exercise capacity: >=4 METS METS (RN): 4 METS ANE Patient History - Allergies Allergies/Adverse Reactions: No Known Allergies Allergy (Verified 08/11/16 10:51) - Home Medications Home medications: home medication list seen and reviewed Home Medications: buPROPion XL [Wellbutrin 150mg XL] 150 mg PO DAILY 04/16/14 [Last Taken 06:00 450mg] Gabapentin [Neurontin 300 MG (*)] 600 mg PO DAILY 05/08/15 [Last Taken 11/16/16 08:00] Docusate Sodium [Colace 100 MG (*)] 100 mg PO DAILY 07/08/16 [Last Taken 08:00] Herbals/Supplements -Info Only 1 ea PO DAILY 08/13/16 [Last Taken 11/10/16] Multivitamins [Multivitamin (*)] 1 each PO DAILY 08/13/16 [Last Taken 11/16/16 08:00] Aspirin EC [Aspirin EC 81 mg (*)] 81 mg PO DAILY 10/13/16 [Last Taken 11/10/16] Escitalopram Oxalate [Lexapro] 20 mg PO DAILY 10/13/16 [Last Taken 11/10/16] Omeprazole 40 mg PO DAILY 10/13/16 [Last Taken 11/16/16 08:00] Polyethylene Glycol 3350 [Miralax 17 gm (*)] 17 gm PO DAILY 10/13/16 [Last Taken 11/16/16 08:00] Vitamin B Complex [Super B-50 Complex] 1 each PO DAILY 10/13/16 [Last Taken 05/28] - NPO status NPO Status: no food or drink >8 hours NPO Since - Liquids (Date): 11/16/16 NPO Since - Liquids (Time): 22:00 NPO Since - Solids (Date): 11/16/16 NPO Since - Solids (Time): 22:00 - Smoking Hx Smoking Status: Never smoked - Family Anes Hx Family Hx Anesthesia Complications: NONE ANE Labs/Vital Signs - Vital Signs Vital Signs: reviewed preoperatively; see RN documention for details Blood Pressure: 143/96 Heart Rate: 87 Respiratory Rate: 16 O2 Sat (%): 98 Height: 177.8 cm Weight: 74.843 kg ANE Physical Exam - Airway Neck exam: decreased ROM Mallampati Score: Class 3 Mouth exam: small mouth opening - Cardiovascular Cardiovascular: regular rate and rhythym - ASA Status ASA Status: II ANE Anesthesia Plan Anesthesia Plan: general endotracheal anesthesia (RBA discussed.)
[2016-11-17] MEDS ORDERED: LIDOCAINE 2% 5 ML SDV ONE (08:19)
[2016-11-17] MEDS ORDERED: ROCURONIUM 100 MG/10 ML VIAL ONE (08:19)
[2016-11-17] MEDS ORDERED: ONDANSETRON DISINTEGRATING 4 MG TAB PO PRN (08:29)
[2016-11-17] MEDS ORDERED: BISACODYL 10 MG SUPP PR PRN (08:29)
[2016-11-17] MEDS ORDERED: NALOXONE HCL 0.4 MG/ML INJ IVP PRN ×2 (08:29→11:17)
[2016-11-17] MEDS ORDERED: ONDANSETRON 4 MG/2 ML VIAL IVP PRN ×2 (08:29→11:17)
[2016-11-17] MEDS ORDERED: MAGNESIUM HYDROXIDE 30 ML UDCUP PO PRN (08:29)
[2016-11-17] MEDS ORDERED: HYDROmorphONE/DILAUDID 6 MG/30 ML PCA IV PRN (08:29)
[2016-11-17] MEDS ORDERED: LACTULOSE 20 GM/30 ML UDCUP PO PRN (08:29)
[2016-11-17] MEDS ORDERED: NS 1,000 ML IV SCH (08:30)
[2016-11-17] MEDS ORDERED: DEXAMETHASONE 4 MG/ML VIAL ONE (08:56)
[2016-11-17] MEDS ORDERED: ONDANSETRON 4 MG/2 ML VIAL ONE (08:56)
[2016-11-17] MEDS ORDERED: NON-FORMULARY NEW DRUG (Omeprazole [Omeprazole] 40 MG) PO SCH (09:00)
[2016-11-17] MEDS ORDERED: NON-FORMULARY NEW DRUG (Escitalopram Oxalate [Lexapro] 20 MG) PO SCH (09:00)
[2016-11-17] MEDS: BACITRACIN 50,000 UNITS/10 ML SYR IRR ONE ×2 (09:13→11:08)
[2016-11-17] MEDS ORDERED: HYDROmorphONE/DILAUDID 2 MG/ML INJ ONE (10:10)
[2016-11-17] MEDS ORDERED: OXYCODONE/APAP 5/325 TAB PO PRN (11:17)
[2016-11-17] MEDS ORDERED: HYDROCODONE/APAP 5/325 TAB PO PRN (11:17)
[2016-11-17] MEDS ORDERED: LR 500 ML IV PRN (11:17)
[2016-11-17] MEDS ORDERED: HYDROmorphONE/DILAUDID 1 MG/ML SYR IVP PRN (11:17)
[2016-11-17] MEDS ORDERED: ROCURONIUM 50 MG/5 ML VIAL ONE (11:19)
--- NOTE | 2016-11-17 12:35 | SOAPPROG ---
SOAP Progress Note Assessment/Plan: Post Op Visit: S: Awake and alert. Pt with expected lower back pain O: AFVSS/PERRLA/EOMI no droop CN 2-12 grossly intact +lt touch 5/5 BUE/BLE = CDI A/P: 66 yo male that is s/p TLIF at L5/S1 with vocal cord injection by ENT -orders in place -brace when out of bed -call with any questions or concerns -pt understands and agrees 11/17/16 12:30 Objective: Vital Signs Temp Pulse Resp BP Pulse Ox 36.5 C 87 16 143/96 H 98 11/17/16 06:46 11/17/16 08:11 11/17/16 08:11 11/17/16 08:11 11/17/16 08:11 ICD10 Worksheet Patient Problems: Problems Problem Status Onset Arthrodesis status Acute Arthrodesis status Acute Cervical stenosis of spine Acute Fracture of rib of left side Acute Lumbar radiculitis Acute Lumbar stenosis Acute Pneumothorax Acute Primary osteoarthritis of left knee Acute Primary osteoarthritis of right knee Acute
--- NOTE | 2016-11-17 12:59 | POSTOPPROG ---
Post Op Note Date of Operation: 11/17/16 Surgeon: Latoya Mendez Anesthesia: GET(General Endotracheal) Pre-op Diagnosis: L VF paresis s/p ACDF Post-op Diagnosis: same Indication: dysphonia Procedure: L injection laryngoplasty c Prolaryn Gel Findings: Atrophic L TVF, good bulking with inj. 0.8 cc injected Inf/Abcess present in the surg proc area at time of surgery?: No EBL: Minimal Complications: none apparent
[2016-11-17] MEDS: fentaNYL 100 MCG/2 ML INJ IVP PRN ×2 (13:00→13:05)
--- NOTE | 2016-11-17 13:01 | POSTANESTH ---
Post Anesthetic Evaluation Cardiovascular Status: Normal, Stable Respiratory Status: Normal, Stable Level of Consciousness/Mental Status: Can Participate in Eval Pain Control: Adequate, Prn Tx Ordered Nausea/Vomiting Control: Adequate, Prn Tx Ordered Complications Possibly Related to Anesthesia: None Noted
[2016-11-17] MEDS ORDERED: HYDROmorphONE/DILAUDID 1 MG/ML SYR ONE (13:20)
--- NOTE | 2016-11-17 13:41 | GOP ---
[f rep st] OPERATIVE REPORT DATE OF OPERATION: 11/17/2016 SURGEON: Jack Schilling MD NEUROSURGEON: Jack Schilling M.D. MOTORCYCLE MECHANIC: Tohny Aguilar P.A.-C. PREOPERATIVE DIAGNOSIS: 1. Lumbar degenerative disk disease, L5-S1. 2. Lumbar severe foraminal stenosis, L5-S1. 3. Lumbosacral radiculopathy. 4. Lumbar spondylosis. POSTOPERATIVE DIAGNOSIS: 1. Lumbar degenerative disk disease, L5-S1. 2. Lumbar severe foraminal stenosis, L5-S1. 3. Lumbosacral radiculopathy. 4. Lumbar spondylosis. PROCEDURE PERFORMED: 1. Posterior lateral and intervertebral arthrodesis with decompressions bilaterally at L5-S1. 2. Posterior nonsegmental instrumentation across the single interspace, L5-S1. 3. Placement of biomechanical intervertebral device, L5-S1. 4. Same incision bone graft harvest, spinal stereotaxy, microscope. FINDINGS: ESTIMATED BLOOD LOSS: 150 mL. INDICATIONS: This patient is a 66-year-old with a terrible history of both cervical and lumbar spon dylosis, with pain in his neck, pain in his lower back, pain radiating down his legs. He has diffic ulty moving. He is noticing leg weakness and at times you ask him he has no pain in his legs, and a t other times you ask him he says that he has pains in his legs. He had compression of the L5 nerve roots and the neural foramen at L5-S1, and our primary motivation for surgery is to eliminate that compression. He also had some lateral recess stenosis at L5-S1 and multilevel changes throughout th e lumbar spine, but no other significant compressive findings and we thought this gave him the best chance of success. There was a small foraminal disk on the left at L3-L4, but I did not think it wa s causing him any problems. He also complained of discomfort in his neck, and he has had both an an terior and posterior cervical spine reconstructive surgery and he appears to be healing from this, b ut he does have a prominent thoracic kyphosis and spondylolisthesis at C7-T1. He also has some voca l cord paresis that was seen and will be treated today by Dr. Latoya Mendez. She wanted to do a te mporary vocal cord injection and try and improve his voice. This is almost certainly related to his prior anterior approaches to the cervical spine. He did want to proceed. He knew there was a chance of adjacent segment disease, continued symptoms. He knew there was a mima nce he may not improve. He knew there was risk of screw and hardware failure, malfunction and fract ure, and he wanted to proceed despite these risks. He knew that in the future he may require additi onal spine surgery. DESCRIPTION OF PROCEDURE: The patient was taken to the operating room and placed in the supine posi tion. General anesthesia was begun. He was flipped prone onto the Mitchell table. Care was taken t o pad all points of contact. His back was sterilely prepped and draped in the usual fashion. A localizing x-ray was taken. We made a midline incision above the L5-S1 interspace. The incision was approximately 6 cm in lengt h. The subcutaneous tissue was dissected using Bovie cautery down to the fascia, and a subperiostea l dissection was made down the lamina of L5, L4 and the sacrum. We denuded the bilateral L5-S1 face t joints, decorticated them to create a bony arthrodesis at L5-S1. We attached the Intercomenc e frame to the S1 spinous process, performed an O-arm spin, and using frameless Stealth stereotaxy, we placed pedicle screws bilaterally at the sacrum. They were bicortical at the sacrum. We placed pedicle screws bilaterally at L5. These screws were biased laterally away from the L4-L5 joint. An O-arm spin was made. All the screws were well seated within the pedicles, without breach of the ca nal or the neural foramen. They all stimulated at acceptable levels. We took a 30 mm shelley on the le ft and a 35 mm shelley on the right, distracted at L5-S1 opening the neural foramen and indirectly decom pressing it. We removed all the soft tissue and bone at L5-S1. We then harvested the inferior L5 spinous process for autologous grafting purposes, and the rostral sacral spinous process for autologous grafting purposes. We drilled bilateral laminectomy at L5-S1 to decompress the thecal sac and we harvested this bone for autologous grafting purposes. The operating microscope was introduced. We opened the ligamentum flavum and decompressed the spina l canal first on the right and then on the left, and a nice lateral recess decompression and foramin otomy was performed on each side. On the left side, we completely removed the IAP SAP complex of th e L5-S1 facet joint, decompressed the exiting L5 nerve root. We swept the S1 nerve root medially, r emoved the L5-S1 disk and the cartilaginous endplates. We roughened the subchondral bone to create arthrodesis at L5-S1. We placed bone autograft and BMP into the disk space. We chose a 7 x 28 mm d evice. We used a trial device to pick our size. It was inserted at L5-S1 without difficulty and ex panded. Post insertion the fluoroscopy confirmed the position of the device well within the L5-S1 disk space and within the middle of the space. We then ensured that we had final tightened all the cap screws according to company specification. We decorticated all the remaining posterolateral bone to conclude our bilateral arthrodesis. Placed bone autograft and BMP posteriorly bilaterally. We used a grand total of 1.75 mg of BMP for the en tire surgery. A subfascial drain was placed. We closed the incision in multiple layers using Vicryl sutures. A s terile dressing was applied. This concluded the neurosurgical portion of the procedure. Dr. Latoya Mendez then proceed to come in and perform a vocal cord injection at the conclusion of o ur procedure. COMPLICATIONS: None. INSTRUMENTATION USED: Fluid-1ra 4.75 mm system with a 7 x 28 mm Elevate cage. COMPLICATIONS: None. /[id number]/MODL
[2016-11-17] MEDS: ESCITALOPRAM OXALATE 10 MG TAB PO SCH (14:20)
[2016-11-17] MEDS: DOCUSATE SODIUM 100 MG CAP PO SCH (14:20)
[2016-11-17] MEDS: buPROPion XL 150 MG TAB PO SCH (14:20)
[2016-11-17] MEDS: FAMOTIDINE 20 MG TAB PO SCH ×2 (14:21→20:59)
[2016-11-17] MEDS: PANTOPRAZOLE SODIUM 40 MG TAB PO SCH (14:21)
[2016-11-17] MEDS: GABAPENTIN 300 MG CAP PO SCH (14:21)
[2016-11-17] MEDS: POLYETHYLENE GLYCOL 3350 17 GM PKT PO SCH (14:22)
[2016-11-17] MEDS: oxyCODONE IR 5 MG TAB PO PRN ×3 (14:35→23:36)
[2016-11-17] MEDS: ACETAMINOPHEN 500 MG TAB PO SCH ×2 (14:35→20:59)
[2016-11-17] MEDS: ceFAZolin 2 GM/DEXTROSE 100 ML IV SCH ×2 (15:03→23:36)
[2016-11-17] MEDS: METHOCARBAMOL 750 MG TAB PO PRN (17:24)
[2016-11-17] MEDS: diphenhydrAMINE 25 MG CAP PO PRN (23:43)
[2016-11-18] MEDS: oxyCODONE IR 5 MG TAB PO PRN ×3 (04:08→12:02)
[2016-11-18] MEDS: ACETAMINOPHEN 500 MG TAB PO SCH ×3 (05:51→20:00)
--- NOTE | 2016-11-18 08:00 | NEUSURGPN ---
Date of Surgery: 11/17/16 Post Op Day: 1 Assessment/Plan: Assessment: 66 yo male that is s/p TLIF at L5/S1 with vocal cord injection by ENT POD #1 Plan: -continue with vocal rest per Dr Mendez -pt with expected lower back pain -legs feel fine -continue with burt until more mobile-pt has hx of TURP x 4 -PT/OT ordered -brace when out of bed -HIGH PRESSURE FIRER->PO meds -DOM to removed today -post op xrays pending today -orders in place -call with any questions or concerns -pt understands and agrees 11/17/16 12:30 Subjective: Awake and alert. NAD. Eating/drinking. No ramsey/neck/chest/abd or gu complaints. Objective: AFVSS/PERRLA/EOMI no droop CN 2-12 grossly intact +lt touch 5/5 BUE/BLE = CDI Neuro Check Frequency: per routine Urinary Catheter in Place: Yes Urinary Catheter Indication: Surgical Requirement (not mobile at this time-hx of TURP x 4) Catheter Insertion Date: 11/17/16 - Physician Discussed Patient with .: Shakir Patient Seen by : Shakir Neurosurgery Physical Exam - Vitals, I&O, Labs I and O 11/17/16 11/18/16 11/19/16 05:59 05:59 05:59 Intake Total 550 Output Total 1415 Balance -865 Weight 74.84 kg Intake: Oral (ml) 450 IV Infused (ml) 100 ceFAZolin 2 GM/DEXTROSE 100 100 ml @ 200 mls/hr IV Q8H [facility] Rx#:[id number] Output: Urine (ml) 1100 Catheter 1100 DOM Drain Output (ml) 315 Back Mitchell Drake 315 Vital Signs Temp Pulse Resp BP Pulse Ox 36.8 C 63 16 108/71 95 11/18/16 04:00 11/18/16 04:00 11/18/16 04:00 11/18/16 04:00 11/18/16 04:00 ICD10 Worksheet Patient Problems: Problems Problem Status Onset Arthrodesis status Acute Arthrodesis status Acute Cervical stenosis of spine Acute Fracture of rib of left side Acute Lumbar radiculitis Acute Lumbar stenosis Acute Pneumothorax Acute Primary osteoarthritis of left knee Acute Primary osteoarthritis of right knee Acute
[2016-11-18] MEDS: METHOCARBAMOL 750 MG TAB PO PRN ×2 (08:02→19:59)
[2016-11-18] MEDS: DOCUSATE SODIUM 100 MG CAP PO SCH (08:03)
[2016-11-18] MEDS: buPROPion XL 150 MG TAB PO SCH (08:03)
[2016-11-18] MEDS: PANTOPRAZOLE SODIUM 40 MG TAB PO SCH (08:03)
[2016-11-18] MEDS: ESCITALOPRAM OXALATE 10 MG TAB PO SCH (08:03)
[2016-11-18] MEDS: POLYETHYLENE GLYCOL 3350 17 GM PKT PO SCH (08:03)
[2016-11-18] MEDS: GABAPENTIN 300 MG CAP PO SCH (08:03)
[2016-11-18] MEDS: FAMOTIDINE 20 MG TAB PO SCH ×2 (08:03→19:59)
[2016-11-18] MEDS: HYDROCODONE/APAP 5/325 TAB PO PRN ×2 (16:41→23:37)
[2016-11-18] MEDS: diphenhydrAMINE 25 MG CAP PO PRN (21:07)
[2016-11-19] MEDS: HYDROCODONE/APAP 5/325 TAB PO PRN ×6 (04:09→23:46)
[2016-11-19] MEDS: ACETAMINOPHEN 500 MG TAB PO SCH ×3 (06:12→21:24)
[2016-11-19] MEDS: PANTOPRAZOLE SODIUM 40 MG TAB PO SCH (08:42)
[2016-11-19] MEDS: buPROPion XL 150 MG TAB PO SCH (08:42)
[2016-11-19] MEDS: DOCUSATE SODIUM 100 MG CAP PO SCH (08:42)
[2016-11-19] MEDS: FAMOTIDINE 20 MG TAB PO SCH ×2 (08:42→19:59)
[2016-11-19] MEDS: GABAPENTIN 300 MG CAP PO SCH (08:42)
[2016-11-19] MEDS: ESCITALOPRAM OXALATE 10 MG TAB PO SCH (08:46)
[2016-11-19] MEDS: POLYETHYLENE GLYCOL 3350 17 GM PKT PO SCH (08:47)
--- NOTE | 2016-11-19 09:53 | NEUSURGPN ---
Assessment/Plan: Assessment: 66 yo male that is s/p TLIF at L5/S1 with vocal cord injection by ENT POD #2 Plan: -continue with vocal rest per Dr Mendez -pt with expected lower back pain -legs feel fine -burt is out -PT/OT ordered -brace when out of bed -DOM out -post op xrays show stable hardware -Dispo: likely home tomorrow pending clinical course -call NS with any questions or concerns -pt understands and agrees -Pt seen and d/w Dr Schilling Subjective: Pt resting in bed, had increased pain overnight. Just given pain meds this AM. Objective: AAOx3 NAD VSS MAEx4 Motor 5/5 BLE +LT Incision dressed Urinary Catheter in Place: No Catheter Insertion Date: 11/17/16 - Physician Discussed Patient with DrTiffany: Shakir Patient Seen by : Shakir Neurosurgery Physical Exam - Vitals, I&O, Labs I and O 11/18/16 11/19/16 11/20/16 05:59 05:59 05:59 Intake Total 550 500 Output Total 1415 1670 Balance -865 -1170 Weight 74.84 kg Intake: Oral (ml) 450 500 IV Infused (ml) 100 ceFAZolin 2 GM/DEXTROSE 100 100 ml @ 200 mls/hr IV Q8H [facility] Rx#:[id number] Output: Urine (ml) 1100 1500 Catheter 1100 500 Urinal 1000 DOM Drain Output (ml) 315 170 Back Mitchell Drake 315 170 Other: Intake Quantity Yes Sufficient Number of Voids Catheter 1 Urinal 2 Vital Signs Temp Pulse Resp BP Pulse Ox 36.7 C 74 16 121/87 H 96 11/19/16 08:00 11/19/16 08:00 11/19/16 08:00 11/19/16 08:00 11/19/16 08:00 ICD10 Worksheet Patient Problems: Problems Problem Status Onset Arthrodesis status Acute Arthrodesis status Acute Cervical stenosis of spine Acute Fracture of rib of left side Acute Lumbar radiculitis Acute Lumbar stenosis Acute Pneumothorax Acute Primary osteoarthritis of left knee Acute Primary osteoarthritis of right knee Acute
[2016-11-19] MEDS ORDERED: LORazepam 1 MG TAB PO PRN (18:21)
[2016-11-19] MEDS: METHOCARBAMOL 750 MG TAB PO PRN (19:59)
[2016-11-20] MEDS: HYDROCODONE/APAP 5/325 TAB PO PRN ×2 (04:52→08:16)
[2016-11-20] MEDS: ACETAMINOPHEN 500 MG TAB PO SCH ×2 (04:53→10:43)
[2016-11-20 07:26] VITALS: BP 114/85; PULSE 83; RESP 14; TEMP 99; O2SAT 97
--- NOTE | 2016-11-20 08:10 | NEUSURGPN ---
Date of Surgery: 11/17/16 Post Op Day: 3 Assessment/Plan: Assessment: 66 yo male that is s/p TLIF at L5/S1 with vocal cord injection by ENT POD #3 Plan: -continue with vocal rest per Dr Mendez for 3 days post op -pt with expected lower back pain-well controlled with current pain meds -legs feel fine-ambulating well -burt removed -PT/OT-CPM -brace when out of bed-fitting well -on PO meds -DOM removed already -post op xrays look good -orders in place -call with any questions or concerns -pt understands and agrees -dc later today -d/w Dr Schilling 11/17/16 12:30 Subjective: Awake and alert. NAD. Eating/drinking and voiding. No f/c/n/v/d. No ramsey/neck/ chest/abd or gu complaints. Objective: AAOx3/PERRLA/EOMI no droop CN 2-12 grossly intact VSS MAEx4 Motor 5/5 BLE +LT Incision dressed Neuro Check Frequency: per routine Urinary Catheter in Place: No Catheter Insertion Date: 11/17/16 - Physician Discussed Patient with : [facility] Physical Exam - Vitals, I&O, Labs I and O 11/19/16 11/20/16 11/21/16 05:59 05:59 05:59 Intake Total 500 Output Total 1670 900 Balance -1170 -900 Intake: Oral (ml) 500 Output: Urine (ml) 1500 900 Catheter 500 Urinal 1000 900 DOM Drain Output (ml) 170 Back Mitchell Drake 170 Other: Intake Quantity Yes Yes Sufficient Number of Voids Catheter 1 Urinal 2 Vital Signs Temp Pulse Resp BP Pulse Ox 37.2 C 83 14 114/85 H 97 11/20/16 07:24 11/20/16 07:24 11/20/16 07:24 11/20/16 07:24 11/20/16 07:24 ICD10 Worksheet Patient Problems: Problems Problem Status Onset Arthrodesis status Acute Arthrodesis status Acute Cervical stenosis of spine Acute Fracture of rib of left side Acute Lumbar radiculitis Acute Lumbar stenosis Acute Pneumothorax Acute Primary osteoarthritis of left knee Acute Primary osteoarthritis of right knee Acute
[2016-11-20] MEDS: FAMOTIDINE 20 MG TAB PO SCH (08:16)
[2016-11-20] MEDS: DOCUSATE SODIUM 100 MG CAP PO SCH (08:16)
[2016-11-20] MEDS: buPROPion XL 150 MG TAB PO SCH (08:16)
[2016-11-20] MEDS: PANTOPRAZOLE SODIUM 40 MG TAB PO SCH (08:16)
[2016-11-20] MEDS: GABAPENTIN 300 MG CAP PO SCH (08:16)
[2016-11-20] MEDS: POLYETHYLENE GLYCOL 3350 17 GM PKT PO SCH (08:17)
[2016-11-20] MEDS: ESCITALOPRAM OXALATE 10 MG TAB PO SCH (08:17)
--- NOTE | 2016-11-20 08:17 | PDIAF ---
- Diagnosis Diagnosis: s/p lumbar fusion Code Status: Full Code - Medication Management Discharge Medications: Medications to Continue on Transfer buPROPion XL [Wellbutrin 150mg XL] 150 mg PO DAILY 04/16/14 [Last Taken 06:00 450mg] Gabapentin [Neurontin 300 MG (*)] 600 mg PO DAILY 05/08/15 [Last Taken 11/16/16 08:00] Docusate Sodium [Colace 100 MG (*)] 100 mg PO DAILY 07/08/16 [Last Taken 08:00] Herbals/Supplements -Info Only 1 ea PO DAILY 08/13/16 [Last Taken 11/10/16] Multivitamins [Multivitamin (*)] 1 each PO DAILY 08/13/16 [Last Taken 11/16/16 08:00] Escitalopram Oxalate [Lexapro] 20 mg PO DAILY 10/13/16 [Last Taken 11/10/16] Omeprazole 40 mg PO DAILY 10/13/16 [Last Taken 11/16/16 08:00] Polyethylene Glycol 3350 [Miralax 17 gm (*)] 17 gm PO DAILY 10/13/16 [Last Taken 11/16/16 08:00] Vitamin B Complex [Super B-50 Complex] 1 each PO DAILY 10/13/16 [Last Taken 05/28] Acetaminophen [Tylenol ES 500 mg (*)] 1,000 mg PO Q8HRS #0 tab 11/20/16 [Last Taken Unknown] Hydrocodone/APAP 5/325 [[place]stone 5/325 (*)] 1 - 2 tab PO Q4 PRN #90 tab 11/20/16 [ Last Taken Unknown] LORazepam [Ativan (*)] 1 mg PO Q4H PRN #20 tab 11/20/16 [Last Taken Unknown] Methocarbamol [Robaxin 750 mg (*)] 750 mg PO QID PRN #60 tab 11/20/16 [Last Taken Unknown] Discharge Medications: Refer to the Discharge Home Medication list for PRN reason. - Orders Services needed: Home Care, Registered Nurse, Physical Therapy, Occupational Therapy Home Care Face to Face: I certify that this patient was under my care and that I had the required [id number] encounter meeting the encounter requirements on the discharge day. My findings support the fact that the patient is homebound as defined in CMS Chapter 7 Medicare Benefits Manual 30.1.1, The condition of the patient is such that there exists a normal inability to leave home and consequently, leaving home would require a considerable and taxing effort. Oxygen: to keep O2 sat above 90% Diet Recommendation: no restrictions on diet Diet Texture: Regular Texture Diet Rivera: Not applicable - Follow Up Care Current Providers and Referrals: Dayton Nascimento MD [Primary Care Provider] - Siva Schilling MD [Medical Doctor] - (see in 2-3 weeks for post op visit) Barbara Davila MD [Medical Doctor] - (you can see Dr Davila for the cognitive rehab eval as an outpatient )
[2016-11-20] MEDS ORDERED: ENOXAPARIN 40 MG/0.4 ML SYR SC SCH (09:00)
== END 2016-11-20 14:03 | disposition home health service (06) | DRG 460 ==
LOC: F3N 06:17
PROVIDERS: ADMIT Neurological Surgery; ATTEND Neurological Surgery
PROC: 3E0F7GC Introduction of Other Therapeutic Substance into Respiratory Tract, Via Natural or Artificial Opening (ICD-10-PCS; principal; 2016-11-17 08:15)
PROC: 0ST20ZZ Resection of Lumbar Vertebral Disc, Open Approach (ICD-10-PCS; principal; 2016-11-17 08:15)
PROC: 4A10X4G Monitoring of Central Nervous Electrical Activity, Intraoperative, External Approach (ICD-10-PCS; principal; 2016-11-17 08:15)
PROC: 0SG30A1 (ICD-10-PCS; principal; 2016-11-17 08:15)
PROC: 01NB0ZZ Release Lumbar Nerve, Open Approach (ICD-10-PCS; principal; 2016-11-17 08:15)
PROC: 8E0WXBZ Computer Assisted Procedure of Trunk Region (ICD-10-PCS; principal; 2016-11-17 08:15)
DX: M51.17 Intervertebral disc disorders with radiculopathy, lumbosacral region (principal); M48.07 Spinal stenosis, lumbosacral region; M47.27 Other spondylosis with radiculopathy, lumbosacral region; J38.01 Paralysis of vocal cords and larynx, unilateral; Z98.1 Arthrodesis status; M96.3 Postlaminectomy kyphosis; E78.00 Pure hypercholesterolemia, unspecified; G47.33 Obstructive sleep apnea (adult) (pediatric); Z96.643 Presence of artificial hip joint, bilateral; Z96.611 Presence of right artificial shoulder joint; Z72.0 Tobacco use
CPT/HCPCS: 97116-GP; 97162-GP; 97166-GO; 97535-GO; C1713; C1878; G8978-GP-CK; G8979-GP-CI; G8980-GP-CI; G8987-GO-CI; G8988-GO-CI; J0171; J0690; J1100; J1170; J1650; J2250; J2405; J2704; J3010

== ENCOUNTER → 2017-01-18 | Outpatient (CLI) | payer OTHER | LOC: FIMAGING 12:41 | PROVIDERS: ATTEND Nurse Practitioner | DX: Z09 Encounter for follow-up examination after completed treatment for conditions other than malignant neoplasm (principal); Z98.1 Arthrodesis status ==

== ENCOUNTER → 2017-05-17 | Outpatient (CLI) | payer OTHER | LOC: FIMAGING 11:46 | PROVIDERS: ATTEND Nurse Practitioner | DX: Z98.1 Arthrodesis status (principal) ==

== ENCOUNTER → 2017-05-27 | Outpatient (CLI) | payer OTHER | LOC: FIMAGING 13:51 | PROVIDERS: ATTEND Psychiatry & Neurology Neurology | DX: G93.9 Disorder of brain, unspecified (principal) | CPT/HCPCS: 70553; A9585 ==

== ENCOUNTER → 2017-09-28 | Outpatient (CLI) | payer OTHER | LOC: FIMAGING 09:58 | PROVIDERS: ATTEND Nurse Practitioner | DX: Z09 Encounter for follow-up examination after completed treatment for conditions other than malignant neoplasm (principal); Z98.1 Arthrodesis status ==